=== PATIENT | female | born 1955 | race Caucasian/White ===

== ENCOUNTER 2019-01-26 16:54 | Inpatient (IN) | payer MEDICAID, OTHER ==
[~2019-01-26] VITALS: Ht 157.5 cm; Wt 127.0 kg
[~2019-01-26 16:54] MED LIST: AMLODIPINE
[2019-01-26 17:37] LABS: BASOPHILS % 0.6 % (0.0-2.0); EOSINOPHILS % 0.5 % (0.0-5.0); HEMATOCRIT. 38.6 % (36.0-48.0); HEMOGLOBIN. 12.7 g/dL (12.0-16.0); LYMPHOCYTES % 17.4 % (20.0-50.0); MEAN CORPUSCULAR HEMOGLOBIN 27.9 pg (28.0-32.0); MEAN CORPUSCULAR VOLUME 84.8 fL (81.0-99.0); MEAN PLATELET VOLUME 10.1 fl (7.4-10.4); NEUTROPHILS % 76.5 % (40.0-76.0); PLATELET 209 x1000/uL (130-400); RED BLOOD CELL COUNT 4.55 mill/uL (4.2-5.4); RED CELL DISTRIBUTION WIDTH 15.7 % (11.6-14.6)
[2019-01-26 17:46] LABS: CHLORIDE 105 mEq/L (98-107)
[2019-01-26 17:48] LABS: PARTIAL THROMBOPLASTIN TIME 28.6 sec (23.4-31.0); PROTHROMBIN TIME 9.9 sec (9.1-11.1)
[2019-01-26] MEDS ORDERED: HYDROCODONE/ACETAMINOPHEN 5/325MG TABLET PO ONE (18:00)
[2019-01-26] MEDS ORDERED: ASPIRIN 81MG TABLET PO ONE (18:15)
[2019-01-26] MEDS ORDERED: NITROGLYCERIN 0.4MG TABLET SL SL ONE (19:30)
[2019-01-26] MEDS ORDERED: ENOXAPARIN 40MG/0.4ML SYR SUBCUT SCH (21:45)
[2019-01-26] MEDS ORDERED: MAGNESIUM/ALUMINUM HYDROXIDE/SIMETHICONE 30ML UDC PO PRN (21:45)
[2019-01-26] MEDS ORDERED: GUAIFENESIN 200MG/10ML SUGAR FREE UDC PO PRN (21:45)
[2019-01-26] MEDS ORDERED: ACETAMINOPHEN 325MG TABLET PO PRN (21:45)
[2019-01-26] MEDS ORDERED: HYDROCODONE/ACETAMINOPHEN 5/325MG TABLET PO PRN (21:45)
[2019-01-26] MEDS ORDERED: ONDANSETRON HCL 4MG/2ML INJ IV PRN (21:45)
[2019-01-26] MEDS ORDERED: DOCUSATE SODIUM 100MG CAPSULE PO PRN (21:45)
[2019-01-26] MEDS ORDERED: MORPHINE SULFATE 4 MG/ML CPJ (NOT FOR IM USE) IV PRN (21:45)
[2019-01-26] MEDS ORDERED: NITROGLYCERIN 0.4MG TABLET SL SL PRN (21:45)
[2019-01-26] MEDS ORDERED: CLONIDINE 0.1MG TABLET PO PRN (21:45)
[2019-01-26] MEDS ORDERED: DEXTROSE 50% WATER 50ML SYRINGE IV PRN (22:00)
[2019-01-26 23:00] LABS: CREATINE KINASE 82 IU/L (26-192)
[2019-01-26 23:01] LABS: CREATINE KINASE MB FRACTION 2.1 ng/mL (0.5-3.6)
[2019-01-26 23:50] VITALS: BP 159/56
[2019-01-27] VITALS: BP 159/56
[2019-01-27 05:02] VITALS: BP 119/62
[2019-01-27 06:44] LABS: BASOPHILS % 0.6 % (0.0-2.0); EOSINOPHILS % 2.9 % (0.0-5.0); HEMATOCRIT. 38.2 % (36.0-48.0); HEMOGLOBIN. 12.6 g/dL (12.0-16.0); LYMPHOCYTES % 38.2 % (20.0-50.0); MEAN CORPUSCULAR HEMOGLOBIN 28.1 pg (28.0-32.0); MEAN CORPUSCULAR VOLUME 85.1 fL (81.0-99.0); MEAN PLATELET VOLUME 10.2 fl (7.4-10.4); MONOCYTES % 7.3 % (2.0-8.0); PLATELET 199 x1000/uL (130-400); RED BLOOD CELL COUNT 4.49 mill/uL (4.2-5.4); RED CELL DISTRIBUTION WIDTH 15.7 % (11.6-14.6)
[2019-01-27 07:01] LABS: CHLORIDE 107 mEq/L (98-107)
[2019-01-27 07:10] LABS: LDL CHOLESTEROL 103 mg/dL (5-100)
[2019-01-27] MEDS ORDERED: BLOOD SUGAR DIAGNOSTIC STRIP TEST SCH (07:10)
[2019-01-27 07:12] LABS: CREATINE KINASE 77 IU/L (26-192); HDL CHOLESTEROL 38 mg/dL (40-59)
[2019-01-27 07:15] LABS: CREATINE KINASE MB FRACTION 1.7 ng/mL (0.5-3.6)
[2019-01-27] MEDS ORDERED: INSULIN LISPRO 100 UNITS/ML SUBCUT SCH (07:40)
[2019-01-27 08:00] VITALS: BP 123/67
[2019-01-27] MEDS ORDERED: AMLODIPINE 10MG TABLET PO SCH (09:00)
[2019-01-27] MEDS ORDERED: ENOXAPARIN 30MG/0.3ML SYR SUBCUT SCH (09:00)
[2019-01-27 10:16] VITALS: BP 120/60
[2019-01-27] MEDS ORDERED: ATORVASTATIN CALCIUM 10MG TABLET PO SCH (21:00)
== END 2019-01-27 12:19 | disposition home or self-care (01) | DRG 203 ==
LOC: ER 16:54 → 8WST 19:29 → EDBEDREQTM 19:35 → EDBEDREQ 19:35 → ENRESERV 21:42
PROVIDERS: ADMIT Hospitalist; ATTEND Hospitalist
DX: R07.89 Other chest pain (principal); E11.9 Type 2 diabetes mellitus without complications; E78.00 Pure hypercholesterolemia, unspecified; E78.5 Hyperlipidemia, unspecified; I10 Essential (primary) hypertension; J45.909 Unspecified asthma, uncomplicated; Z88.0 Allergy status to penicillin
CPT/HCPCS: 36415; 71045; 80061; 82550; 82553; 82962; 83036; 83880; 84484; 93005; 93306; 93970; 99285; G0378; J1650

== ENCOUNTER 2019-09-14 10:08 | Emergency (ER) | payer MEDICAID ==
[~2019-09-14] VITALS: Ht 157.5 cm; Wt 118.0 kg
[2019-09-14] MEDS ORDERED: MORPHINE SULFATE 4 MG/ML CPJ (NOT FOR IM USE) IV STA (10:46)
[2019-09-14] MEDS ORDERED: ONDANSETRON HCL 4MG/2ML INJ IV STA (10:46)
[2019-09-14 10:57] LABS: BASOPHILS % 0.5 % (0.0-2.0); EOSINOPHILS % 1.5 % (0.0-5.0); HEMATOCRIT. 42.7 % (36.0-48.0); LYMPHOCYTES % 12.6 % (20.0-50.0); MEAN CORPUSCULAR HEMOGLOBIN 27.8 pg (28.0-32.0); MEAN CORPUSCULAR VOLUME 84.8 fL (81.0-99.0); MEAN PLATELET VOLUME 9.9 fl (7.4-10.4); MONOCYTES % 5.9 % (2.0-8.0); NEUTROPHILS % 79.5 % (40.0-76.0); PLATELET 215 x1000/uL (130-400); RED BLOOD CELL COUNT 5.03 mill/uL (4.2-5.4); RED CELL DISTRIBUTION WIDTH 15.6 % (11.6-14.6)
[2019-09-14 11:03] LABS: CHLORIDE 105 mEq/L (98-107)
[2019-09-14 12:50] LABS: CLARITY URINE CLOUDY (CLEAR); COLOR URINE YELLOW (YELLOW); KETONES URINE TRACE (NEGATIVE); LEUKOCYTE ESTERASE URINE NEGATIVE (NEGATIVE); NITRITE URINE NEGATIVE (NEGATIVE); OCCULT BLOOD URINE NEGATIVE (NEGATIVE); PROTEIN URINE NEGATIVE (NEGATIVE); SPECIFIC GRAVITY URINE 1.026 (1.005-1.030); UROBILINOGEN URINE 0.2 E.U./dL (0.2-1.0)
[2019-09-14 14:23] VITALS: BP 113/58
== END 2019-09-14 14:25 | disposition home or self-care (01) ==
LOC: ER 10:08
DX: R10.84 Generalized abdominal pain (principal); R11.2 Nausea with vomiting, unspecified; J45.909 Unspecified asthma, uncomplicated; E11.9 Type 2 diabetes mellitus without complications; E78.00 Pure hypercholesterolemia, unspecified; I10 Essential (primary) hypertension; Z98.890 Other specified postprocedural states; Z88.0 Allergy status to penicillin
CPT/HCPCS: 36415; 74176; 80053; 81003; 81025; 83690; 85025; 85610; 96374; 96375; 99284; J2270; J2405

== ENCOUNTER 2020-07-24 08:00 | Emergency (ER) | payer MEDICAID ==
[~2020-07-24] VITALS: Ht 165.1 cm; Wt 70.0 kg
[2020-07-24] MEDS ORDERED: MORPHINE SULFATE 4 MG/ML CPJ (NOT FOR IM USE) IV STA (08:29)
[2020-07-24] MEDS ORDERED: ONDANSETRON HCL 4MG/2ML INJ IV STA (08:29)
[2020-07-24 09:08] LABS: BASOPHILS % 0.4 % (0.0-2.0); EOSINOPHILS % 1.1 % (0.0-5.0); HEMATOCRIT. 38.8 % (36.0-48.0); HEMOGLOBIN. 12.9 g/dL (12.0-16.0); LYMPHOCYTES % 20.5 % (20.0-50.0); MEAN CORPUSCULAR HEMOGLOBIN 27.8 pg (28.0-32.0); MEAN CORPUSCULAR VOLUME 83.5 fL (81.0-99.0); MEAN PLATELET VOLUME 10.6 fl (7.4-10.4); MONOCYTES % 4.2 % (2.0-8.0); NEUTROPHILS % 73.8 % (40.0-76.0); PLATELET 208 x1000/uL (130-400); RED BLOOD CELL COUNT 4.65 mill/uL (4.2-5.4); RED CELL DISTRIBUTION WIDTH 15.5 % (11.6-14.6)
[2020-07-24 09:17] LABS: CHLORIDE 105 mEq/L (98-107)
[2020-07-24 09:22] LABS: PROTHROMBIN TIME 10.3 sec (9.6-11.0)
[2020-07-24] MEDS ORDERED: KETOROLAC 30MG/ML VIAL IV ONE (09:30)
[2020-07-24] MEDS ORDERED: SODIUM CHLORIDE 0.9% 1,000 ML IV ONE (10:01)
[2020-07-24 12:18] LABS: CLARITY URINE CLOUDY (CLEAR); COLOR URINE DARK YELLOW (YELLOW); KETONES URINE TRACE (NEGATIVE); LEUKOCYTE ESTERASE URINE NEGATIVE (NEGATIVE); NITRITE URINE NEGATIVE (NEGATIVE); OCCULT BLOOD URINE NEGATIVE (NEGATIVE); PROTEIN URINE TRACE (NEGATIVE); SPECIFIC GRAVITY URINE 1.031 (1.005-1.030); UROBILINOGEN URINE 0.2 E.U./dL (0.2-1.0)
[2020-07-24 12:43] VITALS: BP 121/65
== END 2020-07-24 12:44 | disposition home or self-care (01) ==
LOC: ER 08:00
DX: R10.13 Epigastric pain (principal); J45.909 Unspecified asthma, uncomplicated; I10 Essential (primary) hypertension; Z88.0 Allergy status to penicillin
CPT/HCPCS: 36415; 74176; 80053; 81003; 83690; 85025; 85610; 93005; 96361; 96374; 96375; 99284; J1885; J2270; J2405; J7030

== ENCOUNTER 2020-11-27 11:27 | Inpatient (IN) | payer MEDICAID ==
[~2020-11-27] VITALS: Ht 162.6 cm; Wt 115.3 kg
[2020-11-27] MEDS ORDERED: MORPHINE SULFATE 4 MG/ML CPJ (NOT FOR IM USE) IV STA (12:23)
[2020-11-27] MEDS ORDERED: ONDANSETRON HCL 4MG/2ML INJ IV STA (12:23)
[2020-11-27] MEDS ORDERED: SODIUM CHLORIDE 0.9% 1,000 ML IV ONE (12:30)
[2020-11-27 13:56] LABS: BASOPHILS % 0.7 % (0.0-2.0); EOSINOPHILS % 0.6 % (0.0-5.0); HEMATOCRIT. 42.8 % (36.0-48.0); HEMOGLOBIN. 14.3 g/dL (12.0-16.0); MEAN CORPUSCULAR HEMOGLOBIN 27.7 pg (28.0-32.0); MEAN PLATELET VOLUME 10.3 fl (7.4-10.4); MONOCYTES % 5.7 % (2.0-8.0); PLATELET 211 x1000/uL (130-400); RED BLOOD CELL COUNT 5.15 mill/uL (4.2-5.4); RED CELL DISTRIBUTION WIDTH 15.8 % (11.6-14.6)
[2020-11-27] MEDS ORDERED: MORPHINE SULFATE 4 MG/ML CPJ (NOT FOR IM USE) IV SCH (14:00)
[2020-11-27 14:05] LABS: CHLORIDE 104 mEq/L (98-107)
[2020-11-27 14:18] LABS: PROTHROMBIN TIME 10.8 sec (9.6-11.0)
[2020-11-27 17:48] LABS: CLARITY URINE CLOUDY (CLEAR); COLOR URINE YELLOW (YELLOW); KETONES URINE TRACE (NEGATIVE); LEUKOCYTE ESTERASE URINE 1+ (NEGATIVE); NITRITE URINE NEGATIVE (NEGATIVE); OCCULT BLOOD URINE NEGATIVE (NEGATIVE); PROTEIN URINE NEGATIVE (NEGATIVE); SPECIFIC GRAVITY URINE 1.018 (1.005-1.030); UROBILINOGEN URINE 0.2 E.U./dL (0.2-1.0)
[2020-11-28 03:10] VITALS: BP 149/56
[2020-11-28 03:55] VITALS: BP 154/75
[2020-11-28 08:00] VITALS: BP 131/96
[2020-11-28] MEDS ORDERED: ONDANSETRON HCL 4MG/2ML INJ IV PRN (09:30)
[2020-11-28 12:00] VITALS: BP 145/68
[2020-11-28] MEDS: LEVOFLOXACIN 500MG PREMIX 100 ML IV SCH (13:40)
[2020-11-28] MEDS: MORPHINE SULFATE 2 MG/ML CPJ (NOT FOR IM USE) IV PRN (13:53)
[2020-11-28 16:00] VITALS: BP 145/65
[2020-11-28] MEDS: METRONIDAZOLE 500 MG PREMIX 100 ML IV SCH ×2 (16:50→20:18)
[2020-11-28 20:00] VITALS: BP 130/61
[2020-11-28] MEDS: FAMOTIDINE 20MG TABLET PO SCH (20:32)
[2020-11-29] VITALS (8 sets, daily range): BP systolic 125–173; BP diastolic 60–88
[2020-11-29] MEDS: METRONIDAZOLE 500 MG PREMIX 100 ML IV SCH ×3 (04:48→20:09)
[2020-11-29] MEDS: MORPHINE SULFATE 2 MG/ML CPJ (NOT FOR IM USE) IV PRN (05:10)
[2020-11-29] MEDS: LEVOFLOXACIN 500MG PREMIX 100 ML IV SCH (11:50)
[2020-11-29 15:21] LABS: EOSINOPHILS % 0.5 % (0.0-5.0); HEMATOCRIT. 39.2 % (36.0-48.0); HEMOGLOBIN. 12.9 g/dL (12.0-16.0); LYMPHOCYTES % 21.6 % (20.0-50.0); MEAN CORPUSCULAR HEMOGLOBIN 26.9 pg (28.0-32.0); MEAN CORPUSCULAR VOLUME 81.9 fL (81.0-99.0); MEAN PLATELET VOLUME 10.2 fl (7.4-10.4); MONOCYTES % 8.3 % (2.0-8.0); NEUTROPHILS % 68.6 % (40.0-76.0); PLATELET 189 x1000/uL (130-400); RED BLOOD CELL COUNT 4.79 mill/uL (4.2-5.4); RED CELL DISTRIBUTION WIDTH 15.5 % (11.6-14.6)
[2020-11-29 15:46] LABS: CHLORIDE 106 mEq/L (98-107)
[2020-11-29] MEDS: FAMOTIDINE 20MG TABLET PO SCH (20:34)
[2020-11-30] VITALS: BP 197/71
[2020-11-30] MEDS: MORPHINE SULFATE 2 MG/ML CPJ (NOT FOR IM USE) IV PRN ×4 (00:23→08:50)
[2020-11-30] MEDS: CLONIDINE 0.1MG TABLET PO PRN (00:37)
[2020-11-30] MEDS: ACETAMINOPHEN 325MG TABLET PO PRN (00:37)
[2020-11-30 04:00] VITALS: BP 140/85
[2020-11-30] MEDS: METRONIDAZOLE 500 MG PREMIX 100 ML IV SCH ×3 (04:06→19:47)
[2020-11-30] MEDS ORDERED: MORPHINE SULFATE 2 MG/ML CPJ (NOT FOR IM USE) IV SCH (05:45)
[2020-11-30 08:00] VITALS: BP 157/72
[2020-11-30 08:45] LABS: BASOPHILS % 0.3 % (0.0-2.0); EOSINOPHILS % 0.7 % (0.0-5.0); HEMATOCRIT. 40.5 % (36.0-48.0); HEMOGLOBIN. 13.4 g/dL (12.0-16.0); LYMPHOCYTES % 25.8 % (20.0-50.0); MEAN CORPUSCULAR HEMOGLOBIN 27.4 pg (28.0-32.0); MEAN CORPUSCULAR VOLUME 83.1 fL (81.0-99.0); MEAN PLATELET VOLUME 10.8 fl (7.4-10.4); MONOCYTES % 7.8 % (2.0-8.0); NEUTROPHILS % 65.4 % (40.0-76.0); PLATELET 202 x1000/uL (130-400); RED BLOOD CELL COUNT 4.88 mill/uL (4.2-5.4); RED CELL DISTRIBUTION WIDTH 15.3 % (11.6-14.6)
[2020-11-30] MEDS: MAGNESIUM/ALUMINUM HYDROXIDE/SIMETHICONE 30ML UDC PO SCH ×3 (08:50→20:48)
[2020-11-30] MEDS: AMLODIPINE 10MG TABLET PO SCH (08:50)
[2020-11-30 09:00] LABS: CHLORIDE 107 mEq/L (98-107)
[2020-11-30] MEDS: LEVOFLOXACIN 500MG PREMIX 100 ML IV SCH (11:55)
[2020-11-30 12:00] VITALS: BP 170/66
[2020-11-30 16:00] VITALS: BP 117/49
[2020-11-30] MEDS ORDERED: HYDRALAZINE HCL 50MG TABLET PO NR (17:45)
[2020-11-30 20:00] VITALS: BP 116/67
[2020-11-30] MEDS: HYDRALAZINE HCL 50MG TABLET PO SCH (20:35)
[2020-11-30] MEDS: FAMOTIDINE 20MG TABLET PO SCH (20:48)
[2020-12-01] VITALS: BP 166/81
[2020-12-01] MEDS: METRONIDAZOLE 500 MG PREMIX 100 ML IV SCH ×3 (03:37→20:23)
[2020-12-01 04:00] VITALS: BP 151/80
[2020-12-01] MEDS: MORPHINE SULFATE 2 MG/ML CPJ (NOT FOR IM USE) IV PRN ×4 (04:10→20:23)
[2020-12-01] MEDS: MAGNESIUM/ALUMINUM HYDROXIDE/SIMETHICONE 30ML UDC PO SCH ×3 (05:16→20:23)
[2020-12-01] MEDS ORDERED: SKIN ADHESIVE 0.7 GM EA TOP ONE (06:55)
[2020-12-01] MEDS ORDERED: BACITRACIN 50,000 UNITS/VIAL ONE (06:55)
[2020-12-01] MEDS ORDERED: BUPIVACAINE HCL/PF 0.5% (5MG/ML) 10ML ONE (06:55)
[2020-12-01] MEDS ORDERED: LIDOCAINE HCL 1% 20ML VIAL (Pyxis) INJ ONE (06:55)
[2020-12-01 07:29] LABS: BASOPHILS % 0.6 % (0.0-2.0); EOSINOPHILS % 0.7 % (0.0-5.0); HEMATOCRIT. 41.7 % (36.0-48.0); HEMOGLOBIN. 13.9 g/dL (12.0-16.0); LYMPHOCYTES % 24.1 % (20.0-50.0); MEAN CORPUSCULAR HEMOGLOBIN 27.4 pg (28.0-32.0); MEAN CORPUSCULAR VOLUME 82.5 fL (81.0-99.0); MEAN PLATELET VOLUME 10.8 fl (7.4-10.4); MONOCYTES % 7.7 % (2.0-8.0); NEUTROPHILS % 66.9 % (40.0-76.0); PLATELET 203 x1000/uL (130-400); RED BLOOD CELL COUNT 5.06 mill/uL (4.2-5.4); RED CELL DISTRIBUTION WIDTH 15.5 % (11.6-14.6)
[2020-12-01 07:32] LABS: CHLORIDE 106 mEq/L (98-107)
[2020-12-01] MEDS ORDERED: ROCURONIUM BROMIDE 10MG/ML VIAL 5ML IV ONE (07:44)
[2020-12-01] MEDS ORDERED: NEOSTIGMINE METHYLSULFATE 1MG/ML 10 ML VIAL ONE (07:44)
[2020-12-01] MEDS ORDERED: FENTANYL CITRATE/PF 50MCG/ML 2ML VIAL ONE ×2 (07:44→08:40)
[2020-12-01] MEDS ORDERED: PROPOFOL 200MG/20ML VIAL IV ONE (07:44)
[2020-12-01] MEDS ORDERED: METOCLOPRAMIDE HCL 10MG/2ML VIAL ONE (07:45)
[2020-12-01] MEDS ORDERED: GLYCOPYRROLATE 0.2 MG/ML 2ML VIAL ONE (07:45)
[2020-12-01] MEDS ORDERED: SODIUM CHLORIDE 0.9% 10ML VIAL ONE (07:45)
[2020-12-01] MEDS ORDERED: SUCCINYLCHOLINE CHLORIDE 200MG/10ML IV ONE (07:45)
[2020-12-01] MEDS ORDERED: ONDANSETRON HCL 4MG/2ML INJ ONE (07:45)
[2020-12-01] MEDS ORDERED: PHENYLEPHRINE HCL 10 MG/ML 1ML (IV VIAL) IV ONE ×2 (07:45→08:43)
[2020-12-01] MEDS ORDERED: CEFAZOLIN SODIUM 1000MG/VIAL ONE (07:45)
[2020-12-01] MEDS ORDERED: EPHEDRINE SULFATE 50MG/ML VIAL ONE ×2 (07:45→08:43)
[2020-12-01] MEDS ORDERED: MIDAZOLAM HCL 2 MG/2 ML VIAL ONE (07:45)
[2020-12-01] MEDS ORDERED: ALBUTEROL 90MCG/PUFF 17GM INHALER INH ONE (07:48)
[2020-12-01] MEDS ORDERED: MORPHINE SULFATE 2 MG/ML CPJ (NOT FOR IM USE) IV PRN (08:45)
[2020-12-01] MEDS ORDERED: SODIUM CHLORIDE 0.9% 1,000 ML IV ONE (08:45)
[2020-12-01] MEDS ORDERED: MEPERIDINE HCL/PF 25MG/ML CPJ IV PRN ×2 (08:45)
[2020-12-01] MEDS ORDERED: ONDANSETRON HCL 4MG/2ML INJ IV PRN (08:45)
[2020-12-01] MEDS ORDERED: DIPHENHYDRAMINE 50MG/ML VIAL IV PRN (08:45)
[2020-12-01] MEDS: HYDRALAZINE HCL 50MG TABLET PO SCH ×2 (08:54→20:31)
[2020-12-01] MEDS: AMLODIPINE 10MG TABLET PO SCH (08:54)
[2020-12-01] MEDS: HYDROMORPHONE HCL/PF 2MG/ML CPJ IV PRN ×2 (10:05→10:24)
[2020-12-01] MEDS: LEVOFLOXACIN 500MG PREMIX 100 ML IV SCH (11:45)
[2020-12-01 12:00] VITALS: BP 145/67
[2020-12-01 16:00] VITALS: BP 177/83
[2020-12-01] MEDS: CLONIDINE 0.1MG TABLET PO PRN (16:48)
[2020-12-01 20:00] VITALS: BP 187/74
[2020-12-01] MEDS: FAMOTIDINE 20MG TABLET PO SCH (20:18)
[2020-12-02] VITALS: BP 130/77
[2020-12-02] MEDS: MORPHINE SULFATE 2 MG/ML CPJ (NOT FOR IM USE) IV PRN ×2 (02:09→10:38)
[2020-12-02 04:00] VITALS: BP 142/51
[2020-12-02] MEDS: METRONIDAZOLE 500 MG PREMIX 100 ML IV SCH ×3 (04:58→20:19)
[2020-12-02] MEDS: MAGNESIUM/ALUMINUM HYDROXIDE/SIMETHICONE 30ML UDC PO SCH ×3 (06:53→20:19)
[2020-12-02 08:00] VITALS: BP 134/59
[2020-12-02 08:07] LABS: BASOPHILS % 0.4 % (0.0-2.0); EOSINOPHILS % 0.1 % (0.0-5.0); HEMATOCRIT. 39.2 % (36.0-48.0); HEMOGLOBIN. 12.9 g/dL (12.0-16.0); LYMPHOCYTES % 14.6 % (20.0-50.0); MEAN CORPUSCULAR HEMOGLOBIN 27.2 pg (28.0-32.0); MEAN CORPUSCULAR VOLUME 82.4 fL (81.0-99.0); MEAN PLATELET VOLUME 10.3 fl (7.4-10.4); MONOCYTES % 7.6 % (2.0-8.0); NEUTROPHILS % 77.3 % (40.0-76.0); PLATELET 180 x1000/uL (130-400); RED BLOOD CELL COUNT 4.76 mill/uL (4.2-5.4); RED CELL DISTRIBUTION WIDTH 15.8 % (11.6-14.6)
[2020-12-02 08:10] LABS: CHLORIDE 106 mEq/L (98-107)
[2020-12-02] MEDS: HYDRALAZINE HCL 50MG TABLET PO SCH ×2 (09:29→20:23)
[2020-12-02] MEDS: AMLODIPINE 10MG TABLET PO SCH (09:30)
[2020-12-02] MEDS ORDERED: MAGNESIUM/ALUMINUM HYDROXIDE/SIMETHICONE 30ML UDC PO SCH (11:00)
[2020-12-02 12:00] VITALS: BP 112/52
[2020-12-02] MEDS: LEVOFLOXACIN 500MG PREMIX 100 ML IV SCH (13:17)
[2020-12-02 20:00] VITALS: BP 131/51
[2020-12-02] MEDS: FAMOTIDINE 20MG TABLET PO SCH (20:19)
[2020-12-02] MEDS: ACETAMINOPHEN 325MG TABLET PO PRN (20:22)
[2020-12-03] VITALS: BP 102/52
[2020-12-03] MEDS: METRONIDAZOLE 500 MG PREMIX 100 ML IV SCH ×2 (03:20→15:13)
[2020-12-03 04:00] VITALS: BP 126/74
[2020-12-03] MEDS: MAGNESIUM/ALUMINUM HYDROXIDE/SIMETHICONE 30ML UDC PO SCH ×3 (05:46→23:08)
[2020-12-03 07:16] LABS: CHLORIDE 109 mEq/L (98-107)
[2020-12-03 07:20] LABS: BASOPHILS % 0.3 % (0.0-2.0); EOSINOPHILS % 0.2 % (0.0-5.0); HEMATOCRIT. 41.8 % (36.0-48.0); HEMOGLOBIN. 13.5 g/dL (12.0-16.0); LYMPHOCYTES % 16.5 % (20.0-50.0); MEAN CORPUSCULAR VOLUME 83.8 fL (81.0-99.0); MEAN PLATELET VOLUME 10.5 fl (7.4-10.4); MONOCYTES % 8.1 % (2.0-8.0); NEUTROPHILS % 74.9 % (40.0-76.0); PLATELET 168 x1000/uL (130-400); RED BLOOD CELL COUNT 4.99 mill/uL (4.2-5.4); RED CELL DISTRIBUTION WIDTH 16.4 % (11.6-14.6)
[2020-12-03 08:00] VITALS: BP_SYST 120; BP_SYST 145; BP_DIAS 56; BP_DIAS 66
[2020-12-03] MEDS: HYDRALAZINE HCL 50MG TABLET PO SCH ×2 (08:22→23:04)
[2020-12-03] MEDS: AMLODIPINE 10MG TABLET PO SCH (08:22)
[2020-12-03] MEDS: ACETAMINOPHEN 325MG TABLET PO PRN ×3 (08:24→23:25)
[2020-12-03] MEDS: LEVOFLOXACIN 500MG PREMIX 100 ML IV SCH (14:01)
[2020-12-03] MEDS: DILTIAZEM HCL 60MG TABLET PO SCH ×2 (15:21→23:04)
[2020-12-03 16:00] VITALS: BP 116/58
[2020-12-03 20:00] VITALS: BP 146/63
[2020-12-03] MEDS: FAMOTIDINE 20MG TABLET PO SCH (23:04)
[2020-12-04] VITALS: BP 105/48
[2020-12-04 04:00] VITALS: BP 119/51
[2020-12-04] MEDS: DILTIAZEM HCL 60MG TABLET PO SCH ×2 (06:27→14:49)
[2020-12-04] MEDS: MAGNESIUM/ALUMINUM HYDROXIDE/SIMETHICONE 30ML UDC PO SCH ×2 (06:29→14:49)
[2020-12-04] MEDS: ACETAMINOPHEN 325MG TABLET PO PRN (06:30)
[2020-12-04 07:47] LABS: CHLORIDE 106 mEq/L (98-107)
[2020-12-04 08:00] VITALS: BP 121/50
[2020-12-04 08:11] LABS: BASOPHILS % 0.5 % (0.0-2.0); EOSINOPHILS % 0.5 % (0.0-5.0); HEMATOCRIT. 37.3 % (36.0-48.0); HEMOGLOBIN. 12.4 g/dL (12.0-16.0); LYMPHOCYTES % 22.9 % (20.0-50.0); MEAN CORPUSCULAR HEMOGLOBIN 27.5 pg (28.0-32.0); MEAN CORPUSCULAR VOLUME 82.9 fL (81.0-99.0); MEAN PLATELET VOLUME 10.4 fl (7.4-10.4); MONOCYTES % 7.6 % (2.0-8.0); NEUTROPHILS % 68.5 % (40.0-76.0); PLATELET 164 x1000/uL (130-400); RED BLOOD CELL COUNT 4.49 mill/uL (4.2-5.4); RED CELL DISTRIBUTION WIDTH 16.1 % (11.6-14.6)
[2020-12-04] MEDS: HYDRALAZINE HCL 50MG TABLET PO SCH (09:16)
[2020-12-04 12:00] VITALS: BP 124/61
[2020-12-04] MEDS ORDERED: DILT60TA35 PO (13:48)
[2020-12-04] MEDS ORDERED: FAMO20TA8 PO (13:48)
[2020-12-04] MEDS ORDERED: HYDR-4135 PO (13:48)
[2020-12-04 14:30] VITALS: BP 142/77
== END 2020-12-04 16:00 | disposition home or self-care (01) | DRG 263 ==
LOC: ER 11:27 → EDBEDREQ 15:50 → MICUSO 16:58 → EDBEDREQTM 17:06 → EDBEDREQ 17:06 → 6EST 11-28 02:32 → 5WST 12-03 00:12
PROVIDERS: ADMIT Internal Medicine; ATTEND Internal Medicine
PROC: 0FT44ZZ Resection of Gallbladder, Percutaneous Endoscopic Approach (ICD-10-PCS; principal; 2020-12-01)
DX: K80.12 Calculus of gallbladder with acute and chronic cholecystitis without obstruction (principal); E44.1 Mild protein-calorie malnutrition; I48.91 Unspecified atrial fibrillation; E66.01 Morbid (severe) obesity due to excess calories; I27.20 Pulmonary hypertension, unspecified; J45.909 Unspecified asthma, uncomplicated; I16.0 Hypertensive urgency; K44.9 Diaphragmatic hernia without obstruction or gangrene; E11.9 Type 2 diabetes mellitus without complications; I10 Essential (primary) hypertension; M19.90 Unspecified osteoarthritis, unspecified site; K57.90 Diverticulosis of intestine, part unspecified, without perforation or abscess without bleeding; K76.0 Fatty (change of) liver, not elsewhere classified; Z20.822 Contact with and (suspected) exposure to COVID-19; Z68.41 Body mass index [BMI] 40.0-44.9, adult; Z88.0 Allergy status to penicillin; F17.200 Nicotine dependence, unspecified, uncomplicated; Z53.9 Procedure and treatment not carried out, unspecified reason; Z90.710 Acquired absence of both cervix and uterus
CPT/HCPCS: 36415; 71045; 74181; 76705; 78227; 80048; 80053; 80076; 81003; 82248; 83605; 83880; 84484; 85025; 87426; 88304; 93005; 93306; 96374; 97162; 97166; 99285; A9537; C1893; J0330; J0690; J1170; J1956; J2175; J2250; J2270; J2370; J2405; J2704; J2710; J2765; J3010; J3490; J7030; J7040

== ENCOUNTER 2021-03-09 09:16 | Emergency (ER) | payer MEDICAID ==
[~2021-03-09] VITALS: Ht 162.6 cm; Wt 107.0 kg
[~2021-03-09 09:16] MED LIST changes: -AMLODIPINE; +DILT60TA35 PO; +FAMO20TA8 PO; +HYDR-4135 PO
[2021-03-09] MEDS ORDERED: ONDANSETRON HCL 4MG/2ML INJ IV STA (09:48)
[2021-03-09] MEDS ORDERED: MORPHINE SULFATE 4 MG/ML CPJ (NOT FOR IM USE) IV STA (09:48)
[2021-03-09] MEDS ORDERED: FAMOTIDINE 20MG/2ML VIAL IV STA (09:48)
[2021-03-09] MEDS ORDERED: SODIUM CHLORIDE 0.9% 1,000 ML IV ONE (10:00)
[2021-03-09 10:09] LABS: BASOPHILS % 0.3 % (0.0-2.0); EOSINOPHILS % 1.1 % (0.0-5.0); HEMATOCRIT. 39.9 % (36.0-48.0); HEMOGLOBIN. 13.4 g/dL (12.0-16.0); LYMPHOCYTES % 25.1 % (20.0-50.0); MEAN CORPUSCULAR HEMOGLOBIN 28.4 pg (28.0-32.0); MEAN CORPUSCULAR VOLUME 84.8 fL (81.0-99.0); MEAN PLATELET VOLUME 10.1 fl (7.4-10.4); NEUTROPHILS % 65.5 % (40.0-76.0); PLATELET 199 x1000/uL (130-400); RED BLOOD CELL COUNT 4.71 mill/uL (4.2-5.4)
[2021-03-09 10:13] LABS: CHLORIDE 107 mEq/L (98-107)
[2021-03-09 10:17] LABS: PROTHROMBIN TIME 10.8 sec (9.6-11.0)
[2021-03-09 10:40] LABS: CLARITY URINE CLEAR (CLEAR); COLOR URINE YELLOW (YELLOW); KETONES URINE NEGATIVE (NEGATIVE); LEUKOCYTE ESTERASE URINE TRACE (NEGATIVE); NITRITE URINE NEGATIVE (NEGATIVE); OCCULT BLOOD URINE 1+ (NEGATIVE); PH URINE 7.5 (4.5-8.0); PROTEIN URINE TRACE (NEGATIVE); SPECIFIC GRAVITY URINE 1.017 (1.005-1.030); UROBILINOGEN URINE 0.2 E.U./dL (0.2-1.0)
[2021-03-09] MEDS ORDERED: FAMO40TA70 MT (11:39)
[2021-03-09] MEDS ORDERED: ONDA4TAB5 MT (11:39)
[2021-03-09] MEDS ORDERED: TRAM50TA94 MT (11:39)
[2021-03-09] MEDS ORDERED: HYDROCODONE/ACETAMINOPHEN 5/325MG TABLET PO NR (11:45)
[2021-03-09 12:02] VITALS: BP 140/82
[2021-03-09] MEDS ORDERED: IOHEXOL-300 100 ML BOTTLE ONE (13:00)
== END 2021-03-09 12:39 | disposition home or self-care (01) ==
LOC: ER 09:16
DX: K44.9 Diaphragmatic hernia without obstruction or gangrene (principal); K29.70 Gastritis, unspecified, without bleeding; I10 Essential (primary) hypertension; E78.00 Pure hypercholesterolemia, unspecified; J45.909 Unspecified asthma, uncomplicated; M19.90 Unspecified osteoarthritis, unspecified site; Z90.49 Acquired absence of other specified parts of digestive tract; Z90.710 Acquired absence of both cervix and uterus; Z88.0 Allergy status to penicillin
CPT/HCPCS: 36415; 74177; 80053; 81003; 83690; 85025; 85610; 93005; 96361; 96374; 96375; 99285; J2270; J2405; J3490; J7030; Q9967

== ENCOUNTER 2021-03-31 13:18 | Emergency (ER) | payer MEDICAID ==
[~2021-03-31] VITALS: Ht 162.6 cm; Wt 107.0 kg
[~2021-03-31 13:18] MED LIST changes: +FAMO40TA70 MT; +ONDA4TAB5 MT; +TRAM50TA94 MT
[2021-03-31] MEDS ORDERED: MORPHINE SULFATE 4 MG/ML CPJ (NOT FOR IM USE) IV STA (14:01)
[2021-03-31] MEDS ORDERED: FAMOTIDINE 20MG/2ML VIAL IV STA (14:01)
[2021-03-31] MEDS ORDERED: ONDANSETRON HCL 4MG/2ML INJ IV STA (14:01)
[2021-03-31] MEDS ORDERED: SODIUM CHLORIDE 0.9% 1,000 ML IV ONE (14:15)
[2021-03-31 14:59] LABS: BASOPHILS % 0.5 % (0.0-2.0); EOSINOPHILS % 1.4 % (0.0-5.0); HEMATOCRIT. 38.5 % (36.0-48.0); LYMPHOCYTES % 24.9 % (20.0-50.0); MEAN CORPUSCULAR HEMOGLOBIN 28.8 pg (28.0-32.0); MEAN CORPUSCULAR VOLUME 85.1 fL (81.0-99.0); MEAN PLATELET VOLUME 9.9 fl (7.4-10.4); NEUTROPHILS % 67.2 % (40.0-76.0); PLATELET 218 x1000/uL (130-400); RED BLOOD CELL COUNT 4.52 mill/uL (4.2-5.4); RED CELL DISTRIBUTION WIDTH 15.8 % (11.6-14.6)
[2021-03-31 15:07] LABS: CHLORIDE 106 mEq/L (98-107)
[2021-03-31 15:25] LABS: PROTHROMBIN TIME 10.6 sec (9.6-11.0)
[2021-03-31 16:30] LABS: CLARITY URINE CLEAR (CLEAR); COLOR URINE YELLOW (YELLOW); KETONES URINE TRACE (NEGATIVE); LEUKOCYTE ESTERASE URINE NEGATIVE (NEGATIVE); NITRITE URINE NEGATIVE (NEGATIVE); OCCULT BLOOD URINE TRACE (NEGATIVE); PROTEIN URINE TRACE (NEGATIVE); SPECIFIC GRAVITY URINE 1.026 (1.005-1.030); UROBILINOGEN URINE 0.2 E.U./dL (0.2-1.0)
[2021-03-31] MEDS ORDERED: MAGNESIUM/ALUMINUM HYDROXIDE/SIMETHICONE 30ML UDC PO ONE (16:45)
[2021-03-31] MEDS ORDERED: ONDA4TAB5 MT (17:07)
[2021-03-31] MEDS ORDERED: OMEP10CA5 MT (17:07)
[2021-03-31 17:40] VITALS: BP 120/86
== END 2021-03-31 18:02 | disposition home or self-care (01) ==
LOC: ER 13:18
DX: R10.13 Epigastric pain (principal); R11.2 Nausea with vomiting, unspecified; I10 Essential (primary) hypertension; E78.00 Pure hypercholesterolemia, unspecified; Z90.49 Acquired absence of other specified parts of digestive tract; Z90.710 Acquired absence of both cervix and uterus; Z98.890 Other specified postprocedural states; Z79.899 Other long term (current) drug therapy; Z88.0 Allergy status to penicillin
CPT/HCPCS: 36415; 71045; 80053; 81003; 83690; 84484; 85025; 85610; 93005; 96361; 96374; 96375; 99285; J2270; J2405; J3490; J7030

== ENCOUNTER 2021-07-22 09:24 | Inpatient (IN) | payer MEDICAID ==
[~2021-07-22] VITALS: Ht 165.1 cm; Wt 90.7 kg
[~2021-07-22 09:24] MED LIST changes: +OMEP10CA5 MT
[2021-07-22] MEDS ORDERED: MORPHINE SULFATE 4 MG/ML CPJ (NOT FOR IM USE) IV STA (09:34)
[2021-07-22 10:23] LABS: BASOPHILS % 0.5 % (0.0-2.0); EOSINOPHILS % 0.1 % (0.0-5.0); HEMATOCRIT. 36.2 % (36.0-48.0); HEMOGLOBIN. 12.6 g/dL (12.0-16.0); LYMPHOCYTES % 18.7 % (20.0-50.0); MEAN CORPUSCULAR HEMOGLOBIN 29.5 pg (28.0-32.0); MEAN CORPUSCULAR VOLUME 84.4 fL (81.0-99.0); MEAN PLATELET VOLUME 8.2 fl (7.4-10.4); NEUTROPHILS % 72.7 % (40.0-76.0); PLATELET 185 x1000/uL (130-400); RED BLOOD CELL COUNT 4.28 mill/uL (4.2-5.4); RED CELL DISTRIBUTION WIDTH 17.6 % (11.6-14.6)
[2021-07-22 10:29] LABS: CHLORIDE 101 mEq/L (98-107)
[2021-07-22] MEDS ORDERED: MORPHINE SULFATE 4 MG/ML CPJ (NOT FOR IM USE) IV ONE (10:30)
[2021-07-22] MEDS ORDERED: MORPHINE SULFATE 2 MG/ML CPJ (NOT FOR IM USE) IV NR (10:30)
[2021-07-22 11:45] LABS: PROTHROMBIN TIME 10.9 sec (9.6-11.0)
[2021-07-22] MEDS ORDERED: MORPHINE SULFATE 2 MG/ML CPJ (NOT FOR IM USE) IV SCH (12:00)
[2021-07-22 12:46] LABS: CLARITY URINE TURBID (CLEAR); COLOR URINE DK YELLOW (YELLOW); KETONES URINE TRACE (NEGATIVE); LEUKOCYTE ESTERASE URINE NEGATIVE (NEGATIVE); NITRITE URINE NEGATIVE (NEGATIVE); OCCULT BLOOD URINE 2+ (NEGATIVE); PROTEIN URINE 3+ (NEGATIVE); SPECIFIC GRAVITY URINE 1.031 (1.005-1.030)
[2021-07-22] MEDS ORDERED: ACETAMINOPHEN 325MG TABLET PO PRN (13:30)
[2021-07-22] MEDS ORDERED: DIPHENHYDRAMINE 50MG/ML VIAL IV PRN (13:30)
[2021-07-22] MEDS ORDERED: DIATR MEGLU/DIATRIZOATE SOLN 30ML ONE (14:32)
[2021-07-22] MEDS ORDERED: BARIUM SULFATE(VOLUMEN) 450 ML ORAL.SUSP ONE (14:32)
[2021-07-22] MEDS: CLONIDINE 0.1MG TABLET PO PRN ×2 (14:43→21:10)
[2021-07-22] MEDS: ONDANSETRON HCL 4MG/2ML INJ IV PRN (14:43)
[2021-07-22] MEDS: SODIUM CHLORIDE 0.9% 1,000 ML IV SCH (14:44)
[2021-07-22] MEDS ORDERED: POTASSIUM CHLORIDE INJ 40 MEQ in DEXT 5% WATER 250 ML IV NR (15:00)
[2021-07-22] MEDS: NIFEDIPINE XL 90MG TAB PO SCH (15:52)
[2021-07-22] MEDS: MORPHINE SULFATE 2 MG/ML CPJ (NOT FOR IM USE) IV PRN (15:52)
[2021-07-22] MEDS: LEVOFLOXACIN 500MG PREMIX 100 ML IV SCH (15:52)
[2021-07-22] MEDS ORDERED: IOHEXOL-300 100 ML BOTTLE ONE (19:45)
[2021-07-23 01:04] VITALS: BP 157/78
[2021-07-23] MEDS: ATORVASTATIN CALCIUM 40MG TABLET PO SCH ×2 (02:53→21:57)
[2021-07-23] MEDS: SODIUM CHLORIDE 0.9% 1,000 ML IV SCH ×3 (02:53→22:51)
[2021-07-23 04:00] VITALS: BP 134/71
[2021-07-23] MEDS ORDERED: DEXTROSE 50% WATER 50ML SYRINGE IV PRN (04:00)
[2021-07-23] MEDS: BLOOD SUGAR DIAGNOSTIC STRIP TEST SCH ×4 (06:07→21:57)
[2021-07-23] MEDS: INSULIN LISPRO 100 UNITS/ML SUBCUT SCH ×4 (06:07→21:00)
[2021-07-23 06:27] LABS: BASOPHILS % 0.3 % (0.0-2.0); EOSINOPHILS % 0.3 % (0.0-5.0); HEMATOCRIT. 32.4 % (36.0-48.0); HEMOGLOBIN. 10.8 g/dL (12.0-16.0); LYMPHOCYTES % 25.7 % (20.0-50.0); MEAN CORPUSCULAR HEMOGLOBIN 29.2 pg (28.0-32.0); MEAN CORPUSCULAR VOLUME 87.2 fL (81.0-99.0); MONOCYTES % 7.1 % (2.0-8.0); NEUTROPHILS % 66.6 % (40.0-76.0); PLATELET 153 x1000/uL (130-400); RED BLOOD CELL COUNT 3.71 mill/uL (4.2-5.4); RED CELL DISTRIBUTION WIDTH 18.1 % (11.6-14.6)
[2021-07-23 07:40] LABS: CHLORIDE 102 mEq/L (98-107)
[2021-07-23 07:48] LABS: HDL CHOLESTEROL 40 mg/dL (40-59)
[2021-07-23 07:50] LABS: LDL CHOLESTEROL 77 mg/dL (5-100)
[2021-07-23] MEDS: NIFEDIPINE XL 90MG TAB PO SCH (09:55)
[2021-07-23] MEDS ORDERED: POTASSIUM CHLORIDE INJ 40 MEQ in DEXT 5% WATER 250 ML IV NR (11:00)
[2021-07-23 15:56] VITALS: BP 105/57
[2021-07-23] MEDS: LEVOFLOXACIN 500MG PREMIX 100 ML IV SCH (18:03)
[2021-07-23 20:48] VITALS: BP 97/59
[2021-07-24 00:28] VITALS: BP 92/57
[2021-07-24 04:00] VITALS: BP 124/76
[2021-07-24] MEDS: ONDANSETRON HCL 4MG/2ML INJ IV PRN (05:48)
[2021-07-24] MEDS: SODIUM CHLORIDE 0.9% 1,000 ML IV SCH ×2 (06:07→09:31)
[2021-07-24] MEDS: MORPHINE SULFATE 2 MG/ML CPJ (NOT FOR IM USE) IV PRN (06:07)
[2021-07-24] MEDS: INSULIN LISPRO 100 UNITS/ML SUBCUT SCH ×2 (06:08→12:50)
[2021-07-24] MEDS: BLOOD SUGAR DIAGNOSTIC STRIP TEST SCH ×2 (06:08→12:20)
[2021-07-24 07:06] LABS: BASOPHILS % 0.3 % (0.0-2.0); EOSINOPHILS % 1.4 % (0.0-5.0); HEMATOCRIT. 31.9 % (36.0-48.0); HEMOGLOBIN. 10.7 g/dL (12.0-16.0); LYMPHOCYTES % 28.9 % (20.0-50.0); MEAN CORPUSCULAR HEMOGLOBIN 29.3 pg (28.0-32.0); MEAN CORPUSCULAR VOLUME 87.4 fL (81.0-99.0); MEAN PLATELET VOLUME 8.8 fl (7.4-10.4); MONOCYTES % 5.6 % (2.0-8.0); NEUTROPHILS % 63.8 % (40.0-76.0); PLATELET 148 x1000/uL (130-400); RED BLOOD CELL COUNT 3.65 mill/uL (4.2-5.4); RED CELL DISTRIBUTION WIDTH 17.4 % (11.6-14.6)
[2021-07-24 07:15] LABS: CHLORIDE 103 mEq/L (98-107)
[2021-07-24 08:00] VITALS: BP 111/57
[2021-07-24] MEDS: NIFEDIPINE XL 90MG TAB PO SCH (09:30)
[2021-07-24] MEDS ORDERED: POTASSIUM CHLORIDE INJ 40 MEQ in DEXT 5% WATER 250 ML IV SCH (11:00)
[2021-07-24 12:00] VITALS: BP 104/50
[2021-07-24 16:00] VITALS: BP 94/50
[2021-07-24 16:49] VITALS: BP 94/50
== END 2021-07-24 17:05 | disposition home or self-care (01) | DRG 463 ==
LOC: ER 09:40 → MICUSO 13:33 → 6WST 07-23 00:01
PROVIDERS: ADMIT Internal Medicine; ATTEND Internal Medicine
DX: N39.0 Urinary tract infection, site not specified (principal); C53.9 Malignant neoplasm of cervix uteri, unspecified; K44.9 Diaphragmatic hernia without obstruction or gangrene; E78.00 Pure hypercholesterolemia, unspecified; E78.5 Hyperlipidemia, unspecified; I10 Essential (primary) hypertension; M19.90 Unspecified osteoarthritis, unspecified site; E87.6 Hypokalemia; K57.90 Diverticulosis of intestine, part unspecified, without perforation or abscess without bleeding; Z85.41 Personal history of malignant neoplasm of cervix uteri; Z88.0 Allergy status to penicillin; Z79.899 Other long term (current) drug therapy; Z90.49 Acquired absence of other specified parts of digestive tract; Z82.49 Family history of ischemic heart disease and other diseases of the circulatory system; Z90.710 Acquired absence of both cervix and uterus
CPT/HCPCS: 36415; 74176; 74177; 80048; 80053; 80061; 81003; 82962; 83036; 84443; 85025; 93970; 99285; J1956; J2270; J2405; J3480; J7060; Q9963; Q9967

== ENCOUNTER 2021-09-12 12:08 | Inpatient (IN) | payer MEDICAID ==
[~2021-09-12] VITALS: Ht 165.1 cm; Wt 70.8 kg
[2021-09-12] MEDS ORDERED: MORPHINE SULFATE 4 MG/ML CPJ (NOT FOR IM USE) IV STA (12:46)
[2021-09-12] MEDS ORDERED: ONDANSETRON HCL 4MG/2ML INJ IV STA (12:46)
[2021-09-12] MEDS ORDERED: SODIUM CHLORIDE 0.9% 1,000 ML IV ONE (13:00)
[2021-09-12 13:18] LABS: BASOPHILS % 0.5 % (0.0-2.0); EOSINOPHILS % 0.7 % (0.0-5.0); HEMATOCRIT. 30.2 % (36.0-48.0); HEMOGLOBIN. 10.2 g/dL (12.0-16.0); MEAN CORPUSCULAR HEMOGLOBIN 31.3 pg (28.0-32.0); MEAN CORPUSCULAR VOLUME 92.9 fL (81.0-99.0); MEAN PLATELET VOLUME 8.1 fl (7.4-10.4); MONOCYTES % 7.3 % (2.0-8.0); NEUTROPHILS % 63.5 % (40.0-76.0); PLATELET 405 x1000/uL (130-400); RED BLOOD CELL COUNT 3.25 mill/uL (4.2-5.4); RED CELL DISTRIBUTION WIDTH 21.7 % (11.6-14.6)
[2021-09-12 13:24] LABS: CHLORIDE 105 mEq/L (98-107)
[2021-09-12 13:49] LABS: HEPATITIS B SURFACE ANTIGEN NEGATIVE
[2021-09-12 13:54] LABS: BG BASE EXCESS 3.4 mmol/L (-2.0-2.0); BG CARBOXYHEMOGLOBIN 0.1 % (0.5-1.5); BG DEOXYHEMOGLOBIN 5.9 % (0.0-5.0); BG FRACTION INSPIRED OXYGEN 21; BG METHEMOGLOBIN 0.3 % (0.0-1.5); BG OXYGEN SATURATION 94.1 % (92.0-98.5); BG OXYHEMOGLOBIN 93.7 % (94.0-97.0); BG PH 7.432 (7.350-7.450); BG PO2 74.4 mmHg (75.0-100.0); BG SAMPLE SITE RIGHT RADIAL; BG TOTAL HEMOGLOBIN 10.1 g/dL (12.0-18.0); BG VENT MODE ROOM AIR
[2021-09-12] MEDS ORDERED: MORPHINE SULFATE 4 MG/ML CPJ (NOT FOR IM USE) IV ONE (16:00)
[2021-09-12] MEDS ORDERED: ACETAMINOPHEN 650MG SUPP PR PRN ×2 (21:00)
[2021-09-12] MEDS ORDERED: ONDANSETRON HCL 4MG/2ML INJ IV PRN (21:00)
[2021-09-12] MEDS: DEXT 5%/0.45% NACL 1000ML 1,000 ML IV SCH (21:00)
[2021-09-13] MEDS: LEVOFLOXACIN 500MG PREMIX 100 ML IV SCH ×2 (00:09→21:00)
[2021-09-13] MEDS ORDERED: MORPHINE SULFATE 2 MG/ML CPJ (NOT FOR IM USE) IV PRN (00:45)
[2021-09-13] MEDS ORDERED: NALOXONE HCL 0.4MG/ML VIAL IV PRN (00:45)
[2021-09-13 02:30] VITALS: BP 108/50
[2021-09-13 05:19] LABS: CLARITY URINE CLEAR (CLEAR); COLOR URINE YELLOW (YELLOW); KETONES URINE TRACE (NEGATIVE); LEUKOCYTE ESTERASE URINE NEGATIVE (NEGATIVE); NITRITE URINE NEGATIVE (NEGATIVE); OCCULT BLOOD URINE NEGATIVE (NEGATIVE); PH URINE 6.5 (4.5-8.0); PROTEIN URINE TRACE (NEGATIVE); SPECIFIC GRAVITY URINE 1.021 (1.005-1.030); UROBILINOGEN URINE 0.2 E.U./dL (0.2-1.0)
[2021-09-13] MEDS: DEXT 5%/0.45% NACL 1000ML 1,000 ML IV SCH ×3 (05:48→21:00)
[2021-09-13 07:01] LABS: BASOPHILS % 0.4 % (0.0-2.0); EOSINOPHILS % 1.8 % (0.0-5.0); HEMATOCRIT. 24.2 % (36.0-48.0); HEMOGLOBIN. 8.4 g/dL (12.0-16.0); LYMPHOCYTES % 33.4 % (20.0-50.0); MEAN CORPUSCULAR HEMOGLOBIN 32.5 pg (28.0-32.0); MEAN CORPUSCULAR VOLUME 93.6 fL (81.0-99.0); MEAN PLATELET VOLUME 8.5 fl (7.4-10.4); MONOCYTES % 10.7 % (2.0-8.0); NEUTROPHILS % 53.7 % (40.0-76.0); PLATELET 294 x1000/uL (130-400); RED BLOOD CELL COUNT 2.59 mill/uL (4.2-5.4); RED CELL DISTRIBUTION WIDTH 21.2 % (11.6-14.6)
[2021-09-13] MEDS: SUCRALFATE 1 G/10 ML UDC PO SCH ×4 (07:04→21:00)
[2021-09-13 07:11] LABS: CHLORIDE 106 mEq/L (98-107)
[2021-09-13 08:00] VITALS: BP 130/63
[2021-09-13] MEDS ORDERED: PANTOPRAZOLE SODIUM 40 MG/VIAL IV SCH (09:00)
[2021-09-13 12:00] VITALS: BP 124/56
[2021-09-13 16:00] VITALS: BP 130/66
[2021-09-13] MEDS: PANTOPRAZOLE SODIUM 40 MG/VIAL IV SCH (17:59)
[2021-09-13 20:00] VITALS: BP 129/51
[2021-09-14] VITALS: BP 129/63
[2021-09-14 04:00] VITALS: BP 108/58
[2021-09-14] MEDS: DEXT 5%/0.45% NACL 1000ML 1,000 ML IV SCH (05:00)
[2021-09-14] MEDS: SUCRALFATE 1 G/10 ML UDC PO SCH ×2 (06:52→12:55)
[2021-09-14 07:11] LABS: BASOPHILS % 0.3 % (0.0-2.0); HEMATOCRIT. 25.6 % (36.0-48.0); HEMOGLOBIN. 8.6 g/dL (12.0-16.0); LYMPHOCYTES % 38.9 % (20.0-50.0); MEAN CORPUSCULAR HEMOGLOBIN 31.4 pg (28.0-32.0); MEAN CORPUSCULAR VOLUME 93.6 fL (81.0-99.0); MEAN PLATELET VOLUME 7.8 fl (7.4-10.4); MONOCYTES % 8.5 % (2.0-8.0); NEUTROPHILS % 50.3 % (40.0-76.0); PLATELET 311 x1000/uL (130-400); RED BLOOD CELL COUNT 2.74 mill/uL (4.2-5.4); RED CELL DISTRIBUTION WIDTH 21.3 % (11.6-14.6)
[2021-09-14 07:17] LABS: CHLORIDE 108 mEq/L (98-107)
[2021-09-14 07:25] LABS: PHOSPHORUS 3.2 mg/dL (2.5-4.9)
[2021-09-14 08:00] VITALS: BP 131/63
[2021-09-14] MEDS: PANTOPRAZOLE SODIUM 40 MG/VIAL IV SCH (08:32)
[2021-09-14] MEDS ORDERED: MAGNESIUM 4 G PREMIX 100 ML IV ONE (11:45)
[2021-09-14 12:00] VITALS: BP 131/57
[2021-09-14 15:04] VITALS: BP 131/57
[2021-09-14 16:00] VITALS: BP 109/42
[2021-09-14] MEDS ORDERED: LEVOFLOXACIN 500MG PREMIX 100 ML IV SCH (21:00)
== END 2021-09-14 17:10 | disposition home or self-care (01) | DRG 254 ==
LOC: ER 12:08 → 6EST 09-13 00:54
PROVIDERS: ADMIT Internal Medicine; ATTEND Internal Medicine
DX: K44.9 Diaphragmatic hernia without obstruction or gangrene (principal); K76.0 Fatty (change of) liver, not elsewhere classified; E88.09 Other disorders of plasma-protein metabolism, not elsewhere classified; C53.9 Malignant neoplasm of cervix uteri, unspecified; D64.9 Anemia, unspecified; E11.9 Type 2 diabetes mellitus without complications; E78.00 Pure hypercholesterolemia, unspecified; R10.13 Epigastric pain; R11.2 Nausea with vomiting, unspecified; I10 Essential (primary) hypertension; J45.909 Unspecified asthma, uncomplicated; K57.30 Diverticulosis of large intestine without perforation or abscess without bleeding; M19.90 Unspecified osteoarthritis, unspecified site; K80.20 Calculus of gallbladder without cholecystitis without obstruction; Z79.899 Other long term (current) drug therapy; Z82.49 Family history of ischemic heart disease and other diseases of the circulatory system; Z90.49 Acquired absence of other specified parts of digestive tract; Z90.710 Acquired absence of both cervix and uterus; Z92.21 Personal history of antineoplastic chemotherapy; Z88.0 Allergy status to penicillin
CPT/HCPCS: 36415; 36600; 71045; 74176; 80048; 80053; 80076; 81003; 82248; 82375; 82805; 83735; 84100; 84484; 85025; 86705; 86709; 86803; 86850; 86900; 87340; 93005; 99285; C9113; J1956; J2270; J2405; J3475; J7030